=== PATIENT | female | born 1980 | race Caucasian/White ===

== ENCOUNTER 2017-11-25 00:13 | Inpatient (IN) | payer BC ==
[~2017-11-25] VITALS: Ht 165.1 cm; Wt 80.9 kg
[2017-11-25] MEDS ORDERED: OXYTOCIN 30U/ 0.9% NaCL 500ML 500 ML IV ONE (00:43)
[2017-11-25] MEDS ORDERED: NEWBORN KIT ONE (00:46)
[2017-11-25] MEDS ORDERED: FENTANYL PF 100 MCG/2ML IVPush PRN (01:00)
[2017-11-25] MEDS ORDERED: ALUMINUM/MAG/SIMETHICONE 30 ML UDC PO PRN (01:00)
[2017-11-25] MEDS ORDERED: METOCLOPRAMIDE 5 MG/ML, 2ML IVPush PRN (01:00)
[2017-11-25] MEDS ORDERED: FENTANYL PF 100 MCG/2ML IV PRN (01:00)
[2017-11-25] MEDS ORDERED: SODIUM CITRATE/CITRIC ACID 30 ML UDC PO PRN (01:00)
[2017-11-25] MEDS ORDERED: ONDANSETRON 2MG/ML, 2ML IVPush PRN (01:00)
[2017-11-25 01:11] LABS: BASOPHILS # (AUTO) 0.04 x10^3/uL (0-0.1); BASOPHILS % (AUTO) 0 % (0-1); EOSINOPHILS # (AUTO) 0.11 x10^3/uL (0-0.4); EOSINOPHILS % (AUTO) 1 % (1-7); LYMPHOCYTES # (AUTO) 2.94 x10^3/uL (1-3.4); LYMPHOCYTES % (AUTO) 20 % (22-44); MD NO; MEAN CORPUSCULAR HGB CONC 34.1 g/dL (32.4-35.8); MEAN CORPUSCULAR VOLUME 96.6 fL (80-100); MONOCYTES # (AUTO) 1.04 x10^3/uL (0.2-0.8); MONOCYTES % (AUTO) 7 % (2-9); NEUTROPHILS # (AUTO) 10.47 x10^3/uL (1.8-6.8); NEUTROPHILS % (AUTO) 72 % (42-75); PLATELET COUNT 221 x10^3/uL (130-400); RED BLOOD COUNT 4.23 x10^6/uL (3.82-5.3); RED CELL DISTRIBUTION WIDTH 13.2 % (9.6-15.2)
[2017-11-25 01:25] VITALS: BP 131/78
[2017-11-25] MEDS ORDERED: PLEASE ENTER HEIGHT AND WEIGHT MC SCH (01:30)
[2017-11-25 02:14] VITALS: BP 131/78
[2017-11-25] MEDS: LACTATED RINGERS 1,000 ML IV SCH ×4 (03:51→19:34)
[2017-11-25] MEDS ORDERED: OXYTOCIN 30U/ 0.9% NaCL 500ML 500 ML ONE (05:27)
[2017-11-25] MEDS ORDERED: OXYTOCIN 30U/ 0.9% NaCL 500ML 500 ML IV PRN (06:56)
[2017-11-25] MEDS ORDERED: ONDANSETRON 2MG/ML, 2ML ONE (13:46)
[2017-11-25] MEDS: D5%-LACTATED RINGERS 1,000 ML IV SCH ×3 (16:43→19:34)
[2017-11-25] MEDS ORDERED: FENTANYL/BUPIV./NS/PF 250 ML EPIDCONT SCH (17:24)
[2017-11-25] MEDS ORDERED: BUPIVACAINE/PF 0.25% ONE (17:26)
[2017-11-25] MEDS ORDERED: FENTANYL/BUPIV./NS/PF 250 ML EPIDCONT ONE (17:26)
[2017-11-25] MEDS ORDERED: NALOXONE 0.4 MG/ML, 1ML IVPush PRN (17:30)
[2017-11-25] MEDS ORDERED: LACTATED RINGERS 1,000 ML IVBOLUS PRN (17:30)
[2017-11-25] MEDS ORDERED: EPHEDRINE 50 MG/ML, 1ML IVPush PRN (17:30)
[2017-11-25] MEDS ORDERED: CALCIUM CARBONATE 500 MG TAB.CHEW ONE (19:29)
[2017-11-25] MEDS ORDERED: CALCIUM CARBONATE 500 MG TAB.CHEW PO PRN (19:30)
[2017-11-25] MEDS ORDERED: ALUMINUM/MAG/SIMETHICONE 30 ML UDC ONE (21:02)
[2017-11-25] MEDS ORDERED: AMPICILLIN 2 GM in SODIUM CHLORIDE 0.9% 100 ML IVPB STA (22:09)
[2017-11-25] MEDS ORDERED: MISOPROSTOL 200 MCG TABLET ONE (22:11)
[2017-11-26] MEDS ORDERED: ONDANSETRON 2MG/ML, 2ML IV PRN (00:30)
[2017-11-26] MEDS ORDERED: OXYTOCIN 10 UNITS/ML, 1ML IM PRN (00:30)
[2017-11-26] MEDS ORDERED: METHYLERGONOVINE 0.2 MG/ML IM PRN (00:30)
[2017-11-26] MEDS ORDERED: ACETAMINOPHEN 325 MG TABLET PO PRN (00:30)
[2017-11-26] MEDS ORDERED: MISOPROSTOL 200 MCG TABLET PR PRN (00:30)
[2017-11-26] MEDS ORDERED: CARBOPROST TROMETHAMINE 250 MCG/ML, 1ML IM PRN (00:30)
[2017-11-26] MEDS ORDERED: HYDROcodone/APAP 5/325 TABLET PO PRN (00:30)
[2017-11-26] MEDS ORDERED: OXYTOCIN 30U/ 0.9% NaCL 500ML 500 ML ONE (00:34)
[2017-11-26] MEDS: OXYTOCIN 30U/ 0.9% NaCL 500ML 500 ML IV SCH ×3 (00:35→20:16)
[2017-11-26] MEDS: LACTATED RINGERS 1,000 ML IV SCH ×2 (00:43→01:24)
[2017-11-26] MEDS: D5%-LACTATED RINGERS 1,000 ML IV SCH (00:43)
[2017-11-26 01:50] VITALS: BP 116/74
[2017-11-26 03:09] VITALS: BP 104/59
[2017-11-26] MEDS: IBUPROFEN 600 MG TABLET PO PRN ×3 (06:24→19:49)
[2017-11-26 06:55] VITALS: BP 102/65
[2017-11-26] MEDS: HYDROcodone/APAP 5/325 TABLET PO PRN ×3 (07:26→17:33)
[2017-11-26] MEDS: DOCUSATE 100 MG CAPSULE PO PRN ×2 (07:26→19:49)
[2017-11-26 07:52] LABS: MEAN CORPUSCULAR HGB CONC 34.3 g/dL (32.4-35.8); MEAN CORPUSCULAR VOLUME 96.5 fL (80-100); MEAN PLATELET VOLUME 9.5 fL (7.4-10.4); PLATELET COUNT 188 x10^3/uL (130-400); RED BLOOD COUNT 3.87 x10^6/uL (3.82-5.3)
[2017-11-26 08:36] LABS: BASOPHILS # (AUTO) 0.04 x10^3/uL (0-0.1); BASOPHILS % (AUTO) 0 % (0-1); EOSINOPHILS # (AUTO) 0.03 x10^3/uL (0-0.4); EOSINOPHILS % (AUTO) 0 % (1-7); LYMPHOCYTES # (AUTO) 2.04 x10^3/uL (1-3.4); LYMPHOCYTES % (AUTO) 10 % (22-44); MD SCAN; MONOCYTES # (AUTO) 1.21 x10^3/uL (0.2-0.8); MONOCYTES % (AUTO) 6 % (2-9); NEUTROPHILS # (AUTO) 18.04 x10^3/uL (1.8-6.8); NEUTROPHILS % (AUTO) 85 % (42-75)
[2017-11-26] MEDS: PRENATAL VIT/IRON/FA 1 EACH TABLET PO SCH (08:49)
[2017-11-26 12:00] VITALS: BP 120/74
[2017-11-26 19:28] VITALS: BP 121/73
[2017-11-27] MEDS: IBUPROFEN 600 MG TABLET PO PRN ×2 (01:57→08:01)
[2017-11-27] MEDS: OXYTOCIN 30U/ 0.9% NaCL 500ML 500 ML IV SCH (06:16)
[2017-11-27 07:05] VITALS: BP 100/66
[2017-11-27] MEDS: DOCUSATE 100 MG CAPSULE PO PRN (08:01)
[2017-11-27] MEDS: PRENATAL VIT/IRON/FA 1 EACH TABLET PO SCH (09:00)
[2017-11-27] MEDS ORDERED: DOCU-131 PO (09:06)
[2017-11-27] MEDS ORDERED: HYDR-3240 PO (09:06)
[2017-11-27] MEDS ORDERED: IBUP-1222 PO (09:06)
== END 2017-11-27 11:30 | disposition home or self-care (01) | DRG 775 ==
LOC: LDIP 00:13 → 2NW 11-26 01:51
PROVIDERS: ADMIT Obstetrics & Gynecology; ATTEND Obstetrics & Gynecology
PROC: 10E0XZZ Delivery of Products of Conception, External Approach (ICD-10-PCS; principal; 2017-11-25)
PROC: 0KQM0ZZ Repair Perineum Muscle, Open Approach (ICD-10-PCS; 2017-11-25)
PROC: 3E0R3BZ Introduction of Anesthetic Agent into Spinal Canal, Percutaneous Approach (ICD-10-PCS; 2017-11-25)
PROC: 00HU33Z Insertion of Infusion Device into Spinal Canal, Percutaneous Approach (ICD-10-PCS; 2017-11-25)
DX: O69.81X0 Labor and delivery complicated by cord around neck, without compression, not applicable or unspecified (principal); O70.1 Second degree perineal laceration during delivery; O71.89 Other specified obstetric trauma; Z3A.40 40 weeks gestation of pregnancy; Z37.0 Single live birth
CPT/HCPCS: 36415; 85025; 86850; 86900; 88307; J0290; J2405; J3490; J2590; J3010; J7120; J7121

== ENCOUNTER 2018-12-07 10:24 | Emergency (ER) | payer BC ==
[~2018-12-07] VITALS: Ht 165.1 cm; Wt 73.3 kg
[~2018-12-07 10:24] MED LIST: DOCU-131 PO; HYDR-3240 PO; IBUP-1222 PO
--- NOTE | 2018-12-07 11:00 | NUR ---
pt is refusing suicide precautions. communication with staff has been appropriate. i have notified her that security will be notified if refusal continues. md is at the bedside to consult/educate.
--- NOTE | 2018-12-07 11:25 | NUR ---
after multiple attempts to have this pt change into a hospital gown, and have personal belongings removed and secured. She has informed me that I will need to call security if I am to have her change into a hospital gown. Clear and appropriate education has been provided in regard to our treatment of suicidal attempts and suicidal ideation. pt understands, and disagrees.
--- NOTE | 2018-12-07 11:28 | NUR ---
after continued refusal to abide by hospital policy for si/sa, security has been paged and is at the bedside to assist with changing.
[2018-12-07 11:33] LABS: BASOPHILS # (AUTO) 0.03 x10^3/uL (0-0.1); BASOPHILS % (AUTO) 0 % (0-1); EOSINOPHILS % (AUTO) 1 % (1-7); LYMPHOCYTES # (AUTO) 2.36 x10^3/uL (1-3.4); LYMPHOCYTES % (AUTO) 33 % (22-44); MD NO; MEAN CORPUSCULAR HGB CONC 34.5 g/dL (32.4-35.8); MEAN CORPUSCULAR VOLUME 92.8 fL (80-100); MONOCYTES # (AUTO) 0.43 x10^3/uL (0.2-0.8); MONOCYTES % (AUTO) 6 % (2-9); NEUTROPHILS # (AUTO) 4.31 x10^3/uL (1.8-6.8); NEUTROPHILS % (AUTO) 60 % (42-75); PLATELET COUNT 261 x10^3/uL (130-400); RED BLOOD COUNT 4.93 x10^6/uL (3.82-5.3); RED CELL DISTRIBUTION WIDTH 13.4 % (9.6-15.2)
[2018-12-07 11:44] LABS: ALBUMIN 4.4 g/dL (3.4-5.0); ANION GAP 8 mmol/L (5-15); CALCIUM 8.9 mg/dL (8.5-10.1); CHLORIDE 110 mmol/L (98-107); CREATININE 0.85 mg/dL (0.55-1.02)
[2018-12-07] MEDS ORDERED: ZIPRASIDONE 20 MG INJ IM ONE ×2 (11:47→12:00)
[2018-12-07 11:48] LABS: ACETAMINOPHEN < 2 mcg/mL (10-30); SALICYLATE LEVEL < 1.7 mg/dL (2.8-20.0)
--- NOTE | 2018-12-07 11:55 | NUR ---
this pt is refusing po meds to help. she has told me that I will have to have security restrain her if I am to administer IM medications. She is cooperative w physical restraints, and agreeable to IM anti-psychotic.
--- NOTE | 2018-12-07 12:05 | NUR ---
Upon medical language specialist, and restraints, this pt has become highly verbaly abusive with staff. She is demeaning the position of the role our security officers, she has been condescending to nursing staff and physicians for "not being critical thinkers, and just following rules without question." Security adjusted her restraints to accomodate comfort. Water provided for nourishment as requested. I will continue to monitor and treat this pt as ordered, as well as prn while awaiting medical clearance.
--- NOTE | 2018-12-07 12:14 | NUR ---
THIS RN HAM ROLLING MACHINE OPERATOR AT BEDSIDE TO ASSIST PRIMARY RN, JAVI SR AND PRIMARY MD DR. PATTEN. PATIENT AGITATED AND UNCOOPERATIVE WITH ALL SUCIDIAL PRECATIONS AT THIS TIME. CONFIRMED PATIENT IS ON LEGAL HOLD FOR THOUGHT OF HARMING SELF. PATIENT ADMITTED TO "ALMOST DRIVING HER CAR INTO A TREE THIS AM". PATIENT HAVING SI AND DEPRESSION X 10 DAYS.THIS RN SPOKE WITH PATIENT FOR APPRX 10 MINUTES EXPLAINING THE HOSPITALS PROCEDURES AND SI PRECAUTIONS WITH DR. PATTEN AT BEDSIDE AND PATIENTS FRIEND EDWIN. 4 SECURITY OFFICERS PRESENT AT THIS TIME WELL. PATIENT STATES TO THIS RN "WELL YOUR REASONING FOR ME TO GET INTO A GOWN MAKES SENSE NOW" ASKED PATIENT TO CHANGE INTO HOSPITAL GOWN, REASSURED PATIENT WE WOULD PROVIDE BLANKETS AND CONTINUE TO PROVIDE FOR PRIVACY. PATIENT CONTINUES TO BE UNCOOPERATIVE AND REFUSING TO ADHERE TO HOSPITAL SI PRECUATIONS EVEN THOUGH SHE STATES SHE UNDERSTANDS REASONING. PATIENT BEING UNCOOPERATIVE AND DIFFICULT FOR NO REASON. ED MD OFFERED PATIENT MEDICATION TO HELP HER FEEL RELAXED. PATIENT CONTINUES TO REFUSE ALL INTERVENTIONS AND SIT ON THE GURNY WITH HER ARMS AND LEGS CROSSED. EXPLAINED TO PATIENT THAT SECURITY WILL NEED TO ASSIST PATIENT IN REMOVING PERSONAL CLOTHES AND GETTING INTO HOSPITAL GOWN IF SHE CONTINUES TO REFUSE. PATIENT STATES "OKAY THEN HAVE SECURITY TIE ME DOWN I AM NOT CHANGING INTO GOWN". EXPLAINED MULTIPLE TIMES THAT NO ONE WANTS TO GO DOWN THAT PATH BUT WE NEED TO ADHERE TO ALL SI PRECUATIONS. PATIENT CONTINUES TO STATE SHE WILL REFUSE TO GET INTO GOWN AND REFUSES ALL MEDICATIONS. PATIENT TELLS THIS RN "I WONT KILL MYSELF WITH MY DRESS WHY CANT I KEEP IT ON". SECURITY TO ASSIST PATIENT TO GET INTO GOWN. PATIENT BECOMING VERBALLY AND PHYSCIALLY AGGRESSIVE AND REFUSES TO TAKE OFF CLOTHES OR ASSIST WITH THE PROCESS. SECURITY TO PLACE PATIENT IN RESTAINTS DR PATTEN AT BEDSIDE AND AWARE. PATIENT INITIALLY PLACED IN 2 RESTRAINTS AND CONTINUES TO BE VERBALLY AND PHYSCIALLY ABUSIVE TO SECURITY AND STAFF. PATIENT TIGHTENING ARM AND WONT ALLOW THIS RN TO REMOVE DRESS. SECURITY INFORMED PATIENT THAT WE WILL NEED TO CUTE OFF DRESS AND BRA IF SHE WONT ALLOW US TO TAKE OFF DRESS. PATIENT STATES "IM NOT AGREEING TO THIS SO GO AHEAD AND CUT OFF DRESS AND CLOTHES". PATIENT CONTINUES TO YELL AND SCREAM YELLING THAT WE WERE HURTING HER AND WE WERE BEING UNFAIR. PATIENT STATES TO THIS RN "I KNOW YOU JUST WANT TO KEEP YOUR JOB YOU DONT CARE ABOUT THE PATIENT YOU HAVE NO DIGINTY" THIS RN CONTINUE TO APOLOGIZE THAT WE WERE PUT INTO THIS SITUATION, PATIENT CONTINUES TO BE VERBALLY AND PHYSICALLY AGGRESSIVE WITH STAFF. PATIENTS FRIEND, EDWIN, AT BEDSIDE FOR ENTIRE PROCESS CRYING. ONCE PATIENTS CLOTHES REMOVED AND GOWN PLACED, MAINTAINIG HER PRIVACY THE ENTIRE TIME, PATIENTS FRIEND STARTED MAKING PHONE CALLS FOR THE PATIENT HOLDING UP THE PHONE TO THE PATIENTS MOUTH. EXPLAINED AGAIN TO PATIENTS FRIEND, EDWIN, AND PATIENT THAT WE ARE NOT ABLE TO ALLOW THEM TO MAKE PHONE CALLS FOR THE PATIENT AT THIS TIME FOR THE PATIENTS SAFETY, BOTH AGREED AND SOON I STEPPED OUT OF THE ROON PATIENTS FRIENDS CALLED PATIENTS OBGYN DOCTOR. SECURITY AT BEDSIDE TO ESCORT PATIENTS FRIEND OUT OF ROOM WITH ALL BELONGINS. PATIENT MEDICATED PER BY PRIMARY RN AT THIS TIME.
--- NOTE | 2018-12-07 12:26 | NUR ---
Restraint position checked. cms is intact, and no acute distress is noted in regard to restraints. Water provided for nourishment by request. She is crying, but cooperative with staff at this time. I will continue to monitor and treat as ordered, as well as prn.
--- NOTE | 2018-12-07 12:45 | NUR ---
Rosie (rn) is assuming care of this pt at this time. sbar report was exchanged at the bedside. continuous evaluation for the necesity of restraints reviewed and agreed upon.
--- NOTE | 2018-12-07 12:51 | NUR ---
PT MOVED FROM ER 2 TO ER 38 TO PROVIDE SECURE ENVIRONMENT WITH SITTER. SITTER AT DOORWAY FOR CLOSE OBS. BEDSIDE REPORT FROM JAVI PAIZ. PT REMAINS IN RESTRAINTS AT THIS TIME. PT PULLING AT RESTRAINTS, YELLING AND CRYING AT THIS TIME. FIRST CONTACT WITH PT, THIS RN INTRODUCES SELF AND REVIEWS POC WITH PT. PT CALM AT THIS TIME, COMMUNICATES DESIRE TO HAVE RESTRAINTS REMOVED, STATES SHE WILL CONTRACT FOR SAFETY. PT STATES SHE WILL NOT HURT SELF WHILE IN THE ER, BUT HAD THOUGHTS TODAY OF SI AND KNEW "I NEEDED TO COME IN AND GET HELP". POC REINFORCED WITH PT AND PT INFORMED THAT REASSESSMENT OF RESTRAINTS AND NEED FOR WILL BE MADE EVERY 15 MINUTES. PT VERBALIZES UNDERSTANDING OF POC.
--- NOTE | 2018-12-07 13:26 | NUR ---
TRIAL REMOVAL OF RESTRAINTS. SECURITY CALLED, RESTRAINTS REMOVED AND PT AMBULATED TO BR AND PROVIDED URINE SPECIMEN. SPECIMEN WALKED TO LAB. PT CONFIRMS CONTRACT FOR SAFETY, AND VERBALIZES POC. PT BACK TO ROOM WITH SITTER AT DOORWAY. DR PATTEN NOTIFIED OF TRIAL REMOVAL OF RESTRAINTS.
--- NOTE | 2018-12-07 13:39 | NUR ---
MED REC COMPLETED, MEAL TRAY ORDERED. Addendum: 12/07/18 at 1341 by JADIEL MEAL TRAY PROVIDED. PT RESTING, EYES CLOSED AT THIS TIME.
[2018-12-07 13:45] LABS: AMPHETAMINE SCREEN, URINE Negative (Negative); BARBITURATE SCREEN, URINE Negative (Negative); BENZODIAZEPINE SCREEN, URINE Negative (Negative); CANNABINOID SCREEN, URINE Negative (Negative); COCAINE SCREEN, URINE Negative (Negative); METHADONE SCREEN, URINE Negative (Negative); OPIATE SCREEN, URINE Negative (Negative)
--- NOTE | 2018-12-07 13:51 | NUR ---
ALL LAB RESULTS BACK, PT FOR RECHECK.
--- NOTE | 2018-12-07 14:11 | NUR ---
THROUGHPUT RN: Packet faxed to [facility], [place], [facility]
--- NOTE | 2018-12-07 14:22 | NUR ---
ERP IN TO REASSESS. PT VERBALIZES UNDERSTANDING OF LEGAL HOLD IN PLACE AND PENDING ADMISSION TO PSYCHIATRIC FACILITY. PRESENTED TO ER TO INQUIRE ON PT CONDITION. REPORTS BEING CONCERNED REGARDING PT SAFETY AFTER SPEAKING WITH NEIGHBOR WHO ACCOMPANIED PT TO ER. INFORMED THAT INFORMATION COULD NOT BE PROVIDED, NO VISITORS AT THIS TIME BUT ASSURED PT IS SAFE. PHONE NUMBER OBTAINED AND RECORDED HERE FOR FUTURE REFERENCE. JUSTYNA MUNGUIA [phone] PT INFORMED OF 'S VISIT/INQUIRY.
--- NOTE | 2018-12-07 14:29 | NUR ---
THROUGHPUT RN: Confirmation fax received from [facility], [facility], and [facility]. Inga dorman received from [facility], attemptd to resend at this time.
--- NOTE | 2018-12-07 14:37 | NUR ---
THROUGHPUT RN: Confirmation fax received from [facility]
--- NOTE | 2018-12-07 15:22 | NUR ---
CALL RECEIVED FROM CALLER IDENITIFYING SELF PT'S . POLICY/PROCEDURE REVIEWED WITH CALLER REGARDING PT PRIVACY AND INABILITY TO GIVE OUT INFORMATION. CALLER VERBALIZES CONCERN THAT PT "IS BEING TREATED LIKE A PRISONER". CALLER AGAIN INFORMED THAT PT IS SAFE AND RECEIVING TREATMENT SHE SOUGHT WHEN COMING TO ER. PRIVACY POLICY REVIEWED AGAIN WITH CALLER. CALLER EXPRESSES GRATITUDE "THANK YOU" AND ENDS CALL.
--- NOTE | 2018-12-07 15:50 | NUR ---
PT SLEEPING, NAD, SITTER AT DOORWAY.
--- NOTE | 2018-12-07 16:45 | NUR ---
PT'S QUESTIONS ANSWERED. PILLOW PROVIDED, SITTER AT DOORWAY. CONTINUE TO WAIT FOR ACCEPTING FACILITY.
--- NOTE | 2018-12-07 17:28 | NUR ---
PT SLEEPING, NAD, SITTER AT DOORWAY.
--- NOTE | 2018-12-07 18:15 | NUR ---
MEAL TRAY AND EXTRA MAGAZINES PROVIDED. SITTER AT DOORWAY. THROUGHPUT RN TO PLACE REPEAT CALLS TO FACILITIES INQUIRING ON ACCEPTANCE.
--- NOTE | 2018-12-07 18:15 | NUR ---
Spoke with Flor at [facility], patient's chart will be reviewed "in a few hours". Per Flor they would like more time to pass after patient being in restraints before they accept her.
--- NOTE | 2018-12-07 18:18 | NUR ---
THROUGHPUT RN: 1815 spoke with Jane at [facility], patient's chart was received but has not yet been reviewed. 1818 spoke with Lenore at [facility], patient's chart was received but they do not have beds available this evening.
[2018-12-07] MEDS ORDERED: LORazepam 1MG TABLET ONE ×2 (18:38→20:57)
--- NOTE | 2018-12-07 18:43 | NUR ---
PT REQUESTING MED FOR ANXIETY. ERP NOTIFIED OF REQUEST-ORDER FOR ATIVAN OBTAINED AND GIVEN. SITTER AT DOORWAY SPEAKING WITH PT.
[2018-12-07] MEDS ORDERED: LORazepam 1MG TABLET PO ONE ×2 (19:00→21:00)
--- NOTE | 2018-12-07 19:51 | NUR ---
BREAK RN: PT UP TO BATHROOM STEADILY. PT GIVEN WATER PER REQUEST. SITTER AT DOOR FOR FREQUENT OBS. WILL CONTINUE TO MONITOR.
--- NOTE | 2018-12-07 20:53 | NUR ---
PT READING MAGAZINES, SITTER AT DOORWAY.
--- NOTE | 2018-12-07 21:00 | NUR ---
PT REQUESTING MORE MEDICATION FOR SLEEP. ORDER OBTAINED FROM ERP AND PT MEDICATED WITH 2ND DOSE OF ATIVAN. SITTER AT DOORWAY, LIGHTS OUT.
--- NOTE | 2018-12-07 21:56 | NUR ---
PT APPEARS TO BE SLEEPING, SITTER AT DOORWAY.
--- NOTE | 2018-12-07 23:05 | NUR ---
PT SLEEPING, NAD, SITTER AT DOORWAY.
--- NOTE | 2018-12-07 23:59 | NUR ---
REPORT TO ALLEN PAIZ, TRANSFER OF CARE AT THIS TIME.
--- NOTE | 2018-12-08 00:40 | NUR ---
PT RESTING CALMLY IN BED WITH EYES CLOSED. NO STATED NEEDS AT THIS TIME. SITTER AT DOOR FOR OBS.
--- NOTE | 2018-12-08 01:28 | NUR ---
PT RESTING CALMLY IN BED WITH EYES CLOSED, RESP EVEN AND NON LABORED. NO STATED NEEDS AT THIS TIME. SITTER AT DOOR FOR OBS.
--- NOTE | 2018-12-08 02:21 | NUR ---
pt resting calmly in bed. no stated needs at this time. sitter at door for obs.
--- NOTE | 2018-12-08 03:06 | NUR ---
PT RESTING CALMLY IN BED WITH EYES CLOSED. NO STATED NEEDS AT THIS TIME. SITTER AT DOOR FOR FREQUENT OBS.
--- NOTE | 2018-12-08 04:21 | NUR ---
PT RESTING CALMLY IN BED WITH EYES CLOSED RESP EVEN AND NON LABORED. NO STATED NEEDS AT THIS TIME. SITTER AT DOOR FOR FREQUENT OBS.
--- NOTE | 2018-12-08 05:39 | NUR ---
PT RESTING CALMLY IN BED WITH EYES CLOSED. NO STATED NEEDS AT THIS TIME. SITTER AT DOOR FOR FREQUENT OBS. PT HAS BEEN UP TO USE BATHROOM WITH STABLE AMBULATION. BREAKFAST HAS BEEN ORDERED FOR PT.
--- NOTE | 2018-12-08 05:57 | NUR ---
REPORT TO [facility].
--- NOTE | 2018-12-08 06:10 | NUR ---
PT RESTING IN BED WITH EYES OPENED WATCHING TV. HOSPITALIST IN SPEAKING WITH PT AT THIS TIME.
--- NOTE | 2018-12-08 06:28 | NUR ---
HOSPITALIST REPORTS PT WAS COOPERATIVE AND CORDIAL WITH HIS EVAL. PT REMAINS RESTING IN BED, AWAKE, WATCHING TV. SITTER AT DOOR FOR FREQUENT OBS. NO STATED NEEDS FROM PT AT THIS TIME.
[2018-12-08] MEDS ORDERED: LORazepam 1MG TABLET PO PRN (06:30)
[2018-12-08] MEDS ORDERED: ONDANSETRON ODT 4 MG PO PRN (06:30)
[2018-12-08] MEDS ORDERED: ACETAMINOPHEN 325 MG TABLET PO PRN (06:30)
[2018-12-08] MEDS ORDERED: DOCUSATE 100 MG CAPSULE PO PRN (06:30)
[2018-12-08 06:35] VITALS: BP 111/72
--- NOTE | 2018-12-08 06:57 | NUR ---
DOC BOT ROBOT WHEELED INTO PT ROOM FOR PSYCH EVAL.
[2018-12-08] MEDS ORDERED: LORazepam 0.5MG TABLET PO PRN (07:00)
--- NOTE | 2018-12-08 07:02 | NUR ---
REPORT FROM IZABEL VILLA. CARE ASSUMED. PT RESTING IN ROOM, SITTER IN HALLWAY. NO NEEDS AT THIS TIME.
[2018-12-08 07:19] LABS: FREE T4 (FREE THYROXINE) 0.98 ng/dL (0.76-1.46); THYROID STIMULATING HORMONE 0.56 mIU/L (0.358-3.740)
--- NOTE | 2018-12-08 08:10 | NUR ---
REPORT TO [facility]
--- NOTE | 2018-12-08 08:35 | NUR ---
REPORT TO KARLA AGARWAL RN
--- NOTE | 2018-12-08 08:45 | NUR ---
CALL FROM [facility]- RECOMMENDS INPATIENT PSYCH. WILL SEND OVER REPORT.
--- NOTE | 2018-12-08 09:51 | NUR ---
[facility] ACCEPTING PT-TRANSPORT TO BE ARRANGED FOR 1100. PT AWARE. ALLOWED TO CALL PER RN DISCRETION.
--- NOTE | 2018-12-08 10:00 | NUR ---
WHILE ON PHONE W/ , PT MAKING COMMENTS ABOUT HOW THIS SYSTEM DOESN'T WORK, HOW WE HAVE HER LOCKED UP IN A ROOM, AND THAT NEXT TIME 'I WILL JUST GO JUMP OFF A AMANDA IF THIS IS HOW THEY TREAT ME.' PT NOTIFIED SHE HAS ONE MORE MINUTE ON PHONE. ESCORTED BACK TO ROOM BY RN. PT AWARE THAT [facility] IS ACCEPTING-WILL BE PICKED UP AROUND 1100.
--- NOTE | 2018-12-08 11:00 | NUR ---
REMAINS RESTING IN ROOM. NO NEEDS AT THIS TIME. SITTER IN HALLWAY.
== END 2018-12-08 12:02 ==
LOC: ED 11:20 → EDIP 12-08 05:03 → UNDOADMIN 12-08 05:03 → ED 12-08 12:02
DX: R45.851 Suicidal ideations (principal)
CPT/HCPCS: 36415; 80048; 80307; 82040; 84439; 84443; 84703; 85025; 96372; 99285; J3486

== ENCOUNTER 2020-09-03 09:00 | Outpatient (CLI) | payer BC ==
[~2020-09-03] VITALS: Ht 165.1 cm; Wt 75.0 kg
[~2020-09-03 09:00] MED LIST changes: +HYDR-1067 PO; -HYDR-3240 PO
[2020-09-03 09:57] VITALS: BP 101/59
[2020-09-03 11:03] LABS: MICROSCOPIC NOT IND
[2020-09-03 11:14] LABS: BASOPHILS % (AUTO) 0 % (0-1); EOSINOPHILS % (AUTO) 1 % (1-7); LYMPHOCYTES % (AUTO) 15 % (22-44); MEAN CORPUSCULAR HEMOGLOBIN 33.3 pg (27.0-34.8); MEAN CORPUSCULAR HGB CONC 34.1 g/dL (32.4-35.8); MEAN PLATELET VOLUME 8.9 fL (7.4-10.4); MONOCYTES % (AUTO) 5 % (2-9); NEUTROPHILS % (AUTO) 79 % (42-75); PLATELET COUNT 191 x10^3/uL (130-400); RED BLOOD COUNT 4.34 x10^6/uL (3.82-5.3); RED CELL DISTRIBUTION WIDTH 13.2 % (9.6-15.2)
[2020-09-03 11:18] LABS: ALANINE AMINOTRANSFERASE 26 U/L (12-78); ALBUMIN 2.9 g/dL (3.4-5.0); ANION GAP 7 mmol/L (5-15); CALCIUM 8.4 mg/dL (8.5-10.1); CHLORIDE 106 mmol/L (98-107); CREATININE 0.64 mg/dL (0.55-1.02)
[2020-09-03 11:19] LABS: ALKALINE PHOSPHATASE 67 U/L (45-117); BILIRUBIN,TOTAL 0.3 mg/dL (0.2-1.0); TOTAL PROTEIN 5.9 g/dL (6.4-8.2)
[2020-09-03 11:36] LABS: MD SCAN
[2020-09-03 12:03] LABS: CREATININE,URINE RANDOM < 13.00 mg/dL; TOTAL PROTEIN,URINE RANDOM < 5 mg/dL (0-12)
== END 2020-09-03 12:34 | disposition home or self-care (01) ==
LOC: LDOP 09:00
PROVIDERS: ATTEND Obstetrics & Gynecology
DX: O98.519 Other viral diseases complicating pregnancy, unspecified trimester (principal); O09.90 Supervision of high risk pregnancy, unspecified, unspecified trimester; O29.40 Spinal and epidural anesthesia induced headache during pregnancy, unspecified trimester; O99.519 Diseases of the respiratory system complicating pregnancy, unspecified trimester; Z3A.00 Weeks of gestation of pregnancy not specified
CPT/HCPCS: 36415; 80053; 81003; 82570; 83615; 84156; 84550; 85025; 87635; 99211; G0463

== ENCOUNTER 2020-11-04 12:10 | Outpatient (CLI) | payer BC ==
[~2020-11-04] VITALS: Ht 165.1 cm; Wt 83.2 kg
[2020-11-04 12:30] VITALS: BP 131/71
[2020-11-04] MEDS ORDERED: INSU100I32 SQ (12:30)
[2020-11-04] MEDS ORDERED: PREN1TAB60 PO (12:30)
[2020-11-04] MEDS ORDERED: FLUO10CA13 PO (12:30)
== END 2020-11-04 14:20 | disposition home or self-care (01) ==
LOC: LDOP 12:10
PROVIDERS: ATTEND Obstetrics & Gynecology
DX: O09.93 Supervision of high risk pregnancy, unspecified, third trimester (principal); Z3A.33 33 weeks gestation of pregnancy
CPT/HCPCS: 59025; 76819

== ENCOUNTER 2020-11-25 10:26 | Outpatient (CLI) | payer BC ==
[~2020-11-25] VITALS: Ht 165.1 cm; Wt 81.4 kg
[~2020-11-25 10:26] MED LIST changes: +FLUO10CA13 PO; -HYDR-1067 PO; +HYDR-2214 PO; +INSU100I32 SQ; +PREN1TAB60 PO
[2020-11-25 10:33] VITALS: BP 103/57
== END 2020-11-25 12:46 | disposition home or self-care (01) ==
LOC: LDOP 10:26
PROVIDERS: ATTEND Obstetrics & Gynecology
DX: O09.93 Supervision of high risk pregnancy, unspecified, third trimester (principal); Z3A.36 36 weeks gestation of pregnancy
CPT/HCPCS: 59025; 76819

== ENCOUNTER 2020-12-06 08:14 | Inpatient (IN) | payer BC ==
[~2020-12-06] VITALS: Ht 165.1 cm; Wt 81.8 kg
[2020-12-06] MEDS ORDERED: TERBUTALINE 1 MG/ML, 1ML SQ PRN (08:30)
[2020-12-06] MEDS ORDERED: TERBUTALINE 1 MG/ML, 1ML IVPush PRN (08:30)
[2020-12-06 08:55] LABS: BASOPHILS % (AUTO) 1 % (0-1); EOSINOPHILS % (AUTO) 1 % (1-7); LYMPHOCYTES % (AUTO) 20 % (22-44); MEAN CORPUSCULAR HEMOGLOBIN 33.5 pg (27.0-34.8); MEAN CORPUSCULAR HGB CONC 34.5 g/dL (32.4-35.8); MEAN PLATELET VOLUME 9.5 fL (7.4-10.4); MONOCYTES % (AUTO) 8 % (2-9); NEUTROPHILS % (AUTO) 71 % (42-75); PLATELET COUNT 176 x10^3/uL (130-400); RED BLOOD COUNT 4.29 x10^6/uL (3.82-5.3); RED CELL DISTRIBUTION WIDTH 12.9 % (9.6-15.2)
[2020-12-06 08:57] LABS: MD NO
[2020-12-06] MEDS ORDERED: PLEASE ENTER HEIGHT AND WEIGHT MC SCH (09:00)
[2020-12-06] MEDS ORDERED: NEWBORN KIT ONE ×2 (09:18→21:01)
[2020-12-06] MEDS ORDERED: LIDOCAINE 1%, 20ML ONE (09:18)
[2020-12-06] MEDS ORDERED: OXYTOCIN 30U/ 0.9% NaCL 500ML 500 ML ONE (09:19)
[2020-12-06] MEDS ORDERED: MISOPROSTOL 200 MCG TABLET ONE ×2 (09:19→19:07)
[2020-12-06] MEDS ORDERED: OXYTOCIN 30U/ 0.9% NaCL 500ML 500 ML IV PRN (10:00)
[2020-12-06] MEDS ORDERED: OXYTOCIN 30U/ 0.9% NaCL 500ML 500 ML IV ONE (10:00)
[2020-12-06] MEDS ORDERED: LACTATED RINGERS 1,000 ML IV SCH (10:00)
[2020-12-06] MEDS ORDERED: LACTATED RINGERS 1,000 ML IVBOLUS PRN ×2 (15:00→15:30)
[2020-12-06] MEDS ORDERED: FENTANYL/BUPIV./NS/PF 250 ML EPIDCONT SCH (15:00)
[2020-12-06] MEDS: LACTATED RINGERS 1,000 ML IV SCH ×2 (15:30→23:30)
[2020-12-06] MEDS ORDERED: EPHEDRINE 50 MG/ML, 1ML IVPush PRN (15:30)
[2020-12-06] MEDS ORDERED: ONDANSETRON 2MG/ML, 2ML IV PRN (21:00)
[2020-12-06] MEDS ORDERED: DOCUSATE 100 MG CAPSULE PO PRN (21:00)
[2020-12-06] MEDS ORDERED: MISOPROSTOL 200 MCG TABLET PR PRN (21:00)
[2020-12-06] MEDS ORDERED: CARBOPROST TROMETHAMINE 250 MCG/ML, 1ML IM PRN (21:00)
[2020-12-06] MEDS ORDERED: OXYTOCIN 10 UNITS/ML, 1ML IM PRN (21:00)
[2020-12-06] MEDS: OXYTOCIN 30U/ 0.9% NaCL 500ML 500 ML IV SCH (21:00)
[2020-12-06] MEDS ORDERED: ACETAMINOPHEN 325 MG TABLET PO PRN (21:00)
[2020-12-06] MEDS ORDERED: SIMETHICONE 80 MG CHEW TAB PO PRN (21:00)
[2020-12-06] MEDS ORDERED: HYDROcodone/APAP 5/325 TABLET PO PRN ×2 (21:00)
[2020-12-06] MEDS ORDERED: METHYLERGONOVINE 0.2 MG/ML IM PRN (21:00)
[2020-12-06 23:25] VITALS: BP 114/70
[2020-12-07 03:25] VITALS: BP 104/68
[2020-12-07] MEDS: IBUPROFEN 600 MG TABLET PO PRN ×3 (03:51→17:46)
[2020-12-07 05:42] LABS: BASOPHILS % (AUTO) 1 % (0-1); EOSINOPHILS % (AUTO) 1 % (1-7); LYMPHOCYTES % (AUTO) 16 % (22-44); MEAN CORPUSCULAR HEMOGLOBIN 33.9 pg (27.0-34.8); MEAN CORPUSCULAR HGB CONC 34.9 g/dL (32.4-35.8); MEAN PLATELET VOLUME 9.1 fL (7.4-10.4); MONOCYTES % (AUTO) 7 % (2-9); NEUTROPHILS % (AUTO) 75 % (42-75); PLATELET COUNT 143 x10^3/uL (130-400); RED BLOOD COUNT 3.72 x10^6/uL (3.82-5.3); RED CELL DISTRIBUTION WIDTH 13.2 % (9.6-15.2)
[2020-12-07 05:44] LABS: MD NO
[2020-12-07] MEDS: OXYTOCIN 30U/ 0.9% NaCL 500ML 500 ML IV SCH ×2 (07:00→17:00)
[2020-12-07] MEDS: LACTATED RINGERS 1,000 ML IV SCH ×2 (07:30→15:30)
[2020-12-07 08:00] VITALS: BP 120/72
[2020-12-07] MEDS ORDERED: PRENATAL VIT/IRON/FA 1 EACH TABLET PO SCH (09:00)
[2020-12-07 11:38] VITALS: BP 119/78
[2020-12-07] MEDS ORDERED: IBUP-1222 PO (11:53)
[2020-12-07] MEDS ORDERED: SENN-52 PO (11:54)
== END 2020-12-07 18:18 | disposition home or self-care (01) | DRG 807 ==
LOC: LDIP 08:14 → 2NW 23:13
PROVIDERS: ADMIT Obstetrics & Gynecology; ATTEND Obstetrics & Gynecology
PROC: 10E0XZZ Delivery of Products of Conception, External Approach (ICD-10-PCS; principal; 2020-12-06)
PROC: 0KQM0ZZ Repair Perineum Muscle, Open Approach (ICD-10-PCS; 2020-12-06)
PROC: 3E0R3BZ Introduction of Anesthetic Agent into Spinal Canal, Percutaneous Approach (ICD-10-PCS; 2020-12-06)
PROC: 00HU33Z Insertion of Infusion Device into Spinal Canal, Percutaneous Approach (ICD-10-PCS; 2020-12-06)
PROC: 3E033VJ Introduction of Other Hormone into Peripheral Vein, Percutaneous Approach (ICD-10-PCS; 2020-12-06)
DX: O24.429 Gestational diabetes mellitus in childbirth, unspecified control (principal); Z37.0 Single live birth; O99.344 Other mental disorders complicating childbirth; O40.3XX0 Polyhydramnios, third trimester, not applicable or unspecified; O34.219 Maternal care for unspecified type scar from previous cesarean delivery; F43.10 Post-traumatic stress disorder, unspecified; F32.9 Major depressive disorder, single episode, unspecified; Z3A.38 38 weeks gestation of pregnancy; O70.1 Second degree perineal laceration during delivery; Z20.822 Contact with and (suspected) exposure to COVID-19
CPT/HCPCS: 36415; 82962; 85025; 86592; 86850; 86900; 87635; G0378; J2590; J7120